=== PATIENT | female | born 1980 | race Two or more races ===

== ENCOUNTER 2024-07-09 06:02 | Emergency (ER) | payer OTHER ==
[~2024-07-09] VITALS: Ht 170.2 cm; Wt 69.4 kg
[~2024-07-09 06:02] MED LIST: TRAMADOL HCL25 GM MC
[2024-07-09] MEDS ORDERED: GUAIFENESIN/DEXTROMETHORPHAN 10ML BLIST.PACK PO ONE (07:25)
== END 2024-07-09 07:45 | disposition home or self-care (01) ==
LOC: ER 06:04
DX: R53.81 Other malaise (principal)